=== PATIENT | female | born 1985 | race Caucasian/White ===

== ENCOUNTER 2017-03-27 06:11 | Inpatient (IN) | payer MEDICAID ==
[2017-03-27] MEDS: LACTATED RINGER'S 1,000 ML IV ×4 (06:47→22:37)
[2017-03-27 06:54] LABS: ADD MAN DIFF? NO
[2017-03-27 06:57] LABS: WHITE BLOOD COUNT 8.8 10^3/ul (4.8-10.8)
[2017-03-27 06:57] LABS: BASOPHILS % 0.3 % (0.0-2.0); EOSINOPHILS # 0.2 10^3/ul (0.0-0.5); EOSINOPHILS % 2.5 % (0.0-7.0); HEMATOCRIT 35.2 % (37.0-47.0); HEMOGLOBIN 11.8 g/dl (12.0-16.0); LYMPHOCYTES # 2.2 10^3/ul (0.8-2.9); LYMPHOCYTES % 25.3 % (15.0-51.0); MEAN CORPUSCULAR HEMOGLOBIN 27.4 pg (29.0-33.0); MEAN CORPUSCULAR HGB CONC 33.5 g/dl (32.0-37.0); MEAN CORPUSCULAR VOLUME 81.7 fl (82.0-101.0); MEAN PLATELET VOLUME 11.9 fl (7.4-10.4); MONOCYTE # 0.9 10^3/ul (0.3-0.9); MONOCYTES % 9.9 % (0.0-11.0); NEUTROPHIL # 5.4 10^3/ul (1.6-7.5); NEUTROPHILS % 61.8 % (39.0-77.0); PLATELET COUNT 209 10^3/UL (140-415); RED BLOOD COUNT 4.31 10^6/ul (4.20-5.40); RED CELL DISTRIBUTION WIDTH 13.4 % (11.5-14.5)
[2017-03-27] MEDS ORDERED: MISOPROSTOL 200 MCG TAB PR ×2 (07:00→12:30)
[2017-03-27] MEDS ORDERED: OXYTOCIN 30 UNITS/LR 500 ML IV ×2 (07:00→12:30)
[2017-03-27] MEDS ORDERED: CARBOPROST 250 MCG INJ IM ×2 (07:00→12:30)
[2017-03-27] MEDS ORDERED: METHYLERGONOVINE 0.2 MG INJ IM ×2 (07:00→12:30)
[2017-03-27 07:30] LABS: INR 0.86; PROTIME 11.8 Sec (11.9-14.9); PT RATIO 0.9
[2017-03-27 07:31] LABS: PARTIAL THROMBOPLASTIN TIME 26.4 Sec (25.0-35.0)
[2017-03-27] MEDS ORDERED: FENTAnyl 50 MCG/ML VIAL (07:36)
[2017-03-27] MEDS ORDERED: morphine SULFATE/PF (10 MG/10 ML) INJ (07:36)
[2017-03-27] MEDS ORDERED: morphine 2 MG INJ IV (08:00)
[2017-03-27] MEDS ORDERED: NALOXONE (0.4 MG/ML) INJ IV (08:00)
[2017-03-27] MEDS ORDERED: DIPHENHYDRAMINE 50 MG INJ IV (08:00)
[2017-03-27] MEDS ORDERED: ZOLPIDEM 5 MG TAB PO (08:00)
[2017-03-27] MEDS ORDERED: morphine 4 MG/ML VIAL IV (08:00)
[2017-03-27 08:01] LABS: HEPATITIS B SURFACE ANTIGEN NEGATIVE (NEGATIVE)
[2017-03-27] MEDS ORDERED: PHENYLephrine (100 MCG/ML) 5ML SYG ×2 (08:18→09:00)
[2017-03-27] MEDS ORDERED: DEXAMETHASONE 4 MG/ML 1 ML INJ (08:28)
[2017-03-27] MEDS ORDERED: ONDANSETRON 4 MG INJ (08:29)
[2017-03-27] MEDS: CEFAZOLIN 2 GM/50 ML (PMX) 50 ML IV (09:46)
[2017-03-27] MEDS: ONDANSETRON 4 MG INJ IV (09:53)
[2017-03-27] MEDS: OXYTOCIN 30 UNITS/LR 500 ML IV ×2 (10:32→14:23)
[2017-03-27] MEDS ORDERED: METOCLOPRAMIDE 10 MG INJ (11:04)
[2017-03-27] MEDS: METOCLOPRAMIDE 10 MG INJ IV (11:54)
[2017-03-27] MEDS: SENNA/DOCUSATE NA (8.6MG/50MG) TAB PO (21:16)
[2017-03-27 22:17] LABS: RAPID PLASMA REAGIN NONREACTIVE (NR)
[2017-03-28] MEDS: LACTATED RINGER'S 1,000 ML IV ×2 (04:58→12:29)
[2017-03-28] MEDS: KETOROLAC 30 MG INJ IV (06:46)
[2017-03-28] MEDS: IBUPROFEN 800 MG TAB PO ×3 (08:00→21:31)
[2017-03-28] MEDS: INFLUENZA VIRUS VACCINE 0.5 ML SYG IM* (09:00)
[2017-03-28] MEDS: SENNA/DOCUSATE NA (8.6MG/50MG) TAB PO ×2 (10:50→21:31)
[2017-03-28] MEDS: LANOLIN 7 GM TUBE TOP (10:50)
[2017-03-28 10:53] LABS: ADD MAN DIFF? NO
[2017-03-28 10:59] LABS: WHITE BLOOD COUNT 10.7 10^3/ul (4.8-10.8)
[2017-03-28 10:59] LABS: BASOPHILS % 0.2 % (0.0-2.0); EOSINOPHILS # 0.1 10^3/ul (0.0-0.5); EOSINOPHILS % 0.6 % (0.0-7.0); HEMATOCRIT 28.8 % (37.0-47.0); HEMOGLOBIN 9.4 g/dl (12.0-16.0); LYMPHOCYTES # 2.9 10^3/ul (0.8-2.9); LYMPHOCYTES % 26.6 % (15.0-51.0); MEAN CORPUSCULAR HEMOGLOBIN 27.1 pg (29.0-33.0); MEAN CORPUSCULAR HGB CONC 32.6 g/dl (32.0-37.0); MEAN PLATELET VOLUME 12.2 fl (7.4-10.4); NEUTROPHIL # 6.8 10^3/ul (1.6-7.5); NEUTROPHILS % 63.2 % (39.0-77.0); PLATELET COUNT 196 10^3/UL (140-415); RED BLOOD COUNT 3.47 10^6/ul (4.20-5.40)
[2017-03-28] MEDS: OXYCODONE/ACETAMINOPHEN (5/325) TAB PO (15:48)
[2017-03-28 18:09] LABS: RHOGAM PROFILE 1 1
[2017-03-28] MEDS: FERROUS SULFATE (EC) 325 MG TAB PO (21:31)
[2017-03-29] MEDS: OXYCODONE/ACETAMINOPHEN (5/325) TAB PO ×3 (04:38→17:39)
[2017-03-29] MEDS: IBUPROFEN 800 MG TAB PO ×3 (05:32→21:29)
[2017-03-29] MEDS: SENNA/DOCUSATE NA (8.6MG/50MG) TAB PO ×2 (08:29→21:29)
[2017-03-29] MEDS: FERROUS SULFATE (EC) 325 MG TAB PO ×3 (08:29→21:29)
[2017-03-30] MEDS: OXYCODONE/ACETAMINOPHEN (5/325) TAB PO ×2 (05:05→11:31)
[2017-03-30] MEDS: IBUPROFEN 800 MG TAB PO ×2 (05:35→13:54)
[2017-03-30] MEDS: DIPHTH/TET/ACEL PERTUSS (ADULT) 0.5 ML VIAL IM* (09:00)
[2017-03-30] MEDS: FERROUS SULFATE (EC) 325 MG TAB PO ×2 (09:41→13:54)
[2017-03-30] MEDS: SENNA/DOCUSATE NA (8.6MG/50MG) TAB PO (09:41)
== END 2017-03-30 16:55 | disposition home or self-care (01) | DRG 766 ==
LOC: L-D 06:11 → PP1 12:23
PROVIDERS: Obstetrics & Gynecology
PROC: 10D00Z1 Extraction of Products of Conception, Low, Open Approach (ICD-10-PCS; principal; 2017-03-27 07:30)
DX: O34.211 Maternal care for low transverse scar from previous cesarean delivery (principal); Z3A.39 39 weeks gestation of pregnancy
CPT/HCPCS: 85025; 85610; 85730; 86592; 86850; 86885; 86900; 86901; 87340; 90686; 90715; 94760; 99464